=== PATIENT | female | born 1985 | race Caucasian/White ===

== ENCOUNTER 2017-02-05 17:14 | Emergency (ER) | payer BC ==
[~2017-02-05] VITALS: Ht 175.3 cm; Wt 118.0 kg
[2017-02-05 17:16] VITALS: BP 126/68; PULSE 72; RESP 20; TEMP 98.3; O2SAT 100
--- NOTE | 2017-02-05 17:39 | PD ---
HPI . right forearm pain since earlier today Chief Complaint: Injury Time Seen by Provider: 17:39 Travel History International Travel<30 days: No Contact w/Intl Traveler<30days: No Traveled to known affect area: No History of Present Illness HPI 31-year-old female here with complaints of right forearm pain. [place] the [place] playing with her nephew in the sand when she accidentally fell forward hitting her right forearm in the sand. She is now complaining of pain at the proximal radius and ulna. There is no pain in the elbow joint and she also has full range of motion there. There is some slight edema. Patient was concerned about having a fracture decided to come to the emergency room because she would like an x-ray to rule out any type of bony upper malady. She rates her pain as 5/10. There is no further radiation. She declines pain medications. She is right handed dominant. Her Everardo is present. PFSH Past Medical History ?: Not LMP: 01/30/17 Social History Tobacco Use: No Allergies-Medications (Allergen,Severity, Reaction): Coded Allergies: Morphine (Verified Allergy, Severe, Itching, 02/05/17) "FEELS WEIRD" Reported Meds & Prescriptions Reported Meds & Active Scripts Active Reported Multi Vitamin (Multiple Vitamin) 1 Tab Tab 1 Tab PO DAILY [ control] Review of Systems General / Constitutional: No: Fever Eyes: No: Visual changes HENT: No: Headaches Cardiovascular: No: Chest Pain or Discomfort Respiratory: No: Shortness of Breath Gastrointestinal: No: Abdominal Pain Genitourinary: No: Dysuria Musculoskeletal: Positive: Pain (right forearm) Skin: No Rash Neurologic: No: Weakness Psychiatric: No: Depression Endocrine: No: Polydipsia Hematologic/Lymphatic: No: Easy Bruising Physical Exam Narrative GENERAL: AAO x 3, no acute distress, Well-nourished, well-developed patient. SKIN: Warm and dry. No visible rashes or bruising. HEAD: Normocephalic and atraumatic. EYES: No scleral icterus. No injection or drainage. ENT: No nasal drainage noted. Mucous membranes pink. Airway patent. NECK: Supple, trachea midline. No JVD. CARDIOVASCULAR: Regular rate and rhythm without murmurs, gallops, or rubs. RESPIRATORY: Breath sounds equal bilaterally. No accessory muscle use. No rhonchi or rales. GASTROINTESTINAL: Abdomen soft, non-tender, nondistended. EXTREMITIES: No cyanosis or edema. right forearm proximal with edema, erythema and ++ tenderness/ ROM at elbow normal. [employer] officer strength of b/l hands normal, but elicits pain BACK: Nontender without obvious deformity. No CVA tenderness. PSYCH: AAO x 3, normal affect. Data Data Last Documented VS Vital Signs Date Time Temp Pulse Resp B/P Pulse Ox O2 Delivery O2 Flow Rate FiO2 02/05/17 17:16 98.3 72 20 126/68 100 Room Air Orders Forearm (2vws) (02/05/17 17:42) Ibuprofen (Motrin) (02/05/17 18:15) MDM Medical Decision Making Medical Screen Exam Complete: Yes Emergency Medical Condition: Yes Medical Record Reviewed: Yes Differential Diagnosis bone contusion, soft tissue injury, proximal radius/ulna fracture, Narrative Course This is a 31-year-old female presenting with right proximal forearm pain status post fall. She does have significant point tenderness and edema in this area, therefore I' ll go ahead and check an x-ray to rule out any bony abnormality. I initially asked her if she wanted anything for pain, and she declined. Later she asked for ibuprofen, which was provided. xray reviewed and negative for fracture. There appears to be a small FB, but patient has no open wounds or complaints of pain in that area. advised f/u in her home town. discussed RICE, provided keny wrap and sling. Tylenol and Motrin PRN pain. Patient verbalized understanding of instructions, questions were answered, and thanked me for their care. I advised them if their condition worsens, please return to the nearest emergency room for further care. Diagnosis Primary Impression: Contusion of bone Additional Impression: PAIN IN RIGHT FOREARM Patient Instructions: General Instructions Additional Instructions: Please return to emergency department if your symptoms return or worsen. Follow up with your primary care provider. Take medications as prescribed. Rest the affected area as much as possible. Ice this area for 15-20 minutes at a time. You can do this every hour or as much as tolerated. Keep this area compressed (keny bandage) as tolerated. Elevate this area. Use ibuprofen as needed for pain and inflammation. Disposition: 01 DISCHARGE HOME Condition: Stable Neena Nelson February 05, 2017 17:39
[2017-02-05] MEDS ORDERED: MULT-135 PO (17:51)
[2017-02-05] MEDS ORDERED: birth control (17:51)
[2017-02-05] MEDS ORDERED: IBUPROFEN 800 MG TAB PO ONE (18:15)
--- NOTE | 2017-02-05 18:21 | RADRPT ---
EXAM DATE/TIME: 02/05/2017 18:02 [facility] COMPARISON: No previous studies available for comparison. INDICATIONS : Right forearm injury complains of pain MEDICAL HISTORY : None. SURGICAL HISTORY : None. ENCOUNTER: Initial ACUITY: 1 day PAIN SCORE: 10/10 LOCATION: Right upper extremity FINDINGS: The right radius and ulna are intact and normally aligned. 4 mm radiopaque structure seen in the soft tissues dorsal/lateral to the midshaft of the radius. I'm not sure whether this is a calcification or a small foreign body. Please correlate clinically. CONCLUSION: Intact right forearm. Possibly a 4 mm dorsal/lateral soft tissue foreign body mid to slightly distal forearm. Ellis Corley MD on February 05, 2017 at 18:18 Board Certified Radiologist. This report was verified electronically.
== END 2017-02-05 18:40 | disposition home or self-care (01) ==
LOC: NEPK 17:14
DX: M79.631 Pain in right forearm (principal); T14.8 Other injury of unspecified body region; S50.11XA Contusion of right forearm, initial encounter; W18.30XA Fall on same level, unspecified, initial encounter; Y93.89 Activity, other specified; Y92.832 Beach as the place of occurrence of the external cause; Y99.8 Other external cause status
CPT/HCPCS: 73090; 99283